=== PATIENT | female | born 1985 | race Two or more races ===

== ENCOUNTER 2017-04-09 19:54 | Emergency (ER) | payer OTHER ==
--- NOTE | 2017-04-09 20:16 | ED Physician Documentation ---
History of Present Illness - Stated complaint Stated Complaint: CHEST PX,HEAD PX,FACE NUMB - Chief complaint Chief Complaint: Cardiac - History obtained from History obtained from: Patient - History of Present Illness Timing: Other (3) Pain level max: 8 Pain level now: 8 - Additonal information Additional information: Patient is a 31-year-old female who presents to the emergency department complaining of feeling like food gets stuck when she swallows followed by diffuse chest pain. This lasts for a few minutes and then resolves. States this is worse with solid food and better with liquids. She also complains of a left-sided headache, left-sided face numbness. She has had a history of migraines, but has not had one for several years. Has seen her PCP for the food swallowing difficulties and had a barium swallow, does not know results. Review of Systems Constitutional: denies: Fever, Chills Eyes: reports: Photophobia (mild). denies: Loss of vision, Decreased vision Ears: denies: Ear pain Nose: denies: Rhinorrhea / runny nose, Congestion Throat: denies: Sore throat Cardiac: denies: Chest pain / pressure, Palpitations, Pedal edema Respiratory: denies: Dyspnea, Cough GI: denies: Abdominal Pain, Nausea, Vomiting, Diarrhea Skin: denies: Rash Musculoskeletal: denies: Neck pain, Back pain Neurologic: reports: Numbness (tingling to the L side of the face), Headache (L sided, gradual onset.). 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 - Present Medications Home Medications: Ambulatory Orders Medication Instructions Recorded Confirmed No Known Home Medications [No 04/09/17 04/09/17 Known Home Medications] - Allergies Allergies/Adverse Reactions: Allergies Allergy/AdvReac Type Severity Reaction Status Date / Time No Known Drug Allergies Allergy Verified 04/09/17 20:00 - Social History Does the pt smoke?: No Smoking Status: Never smoker PD ED PE NORMAL - Vitals Vital signs reviewed: Yes - General General: Alert and oriented X 3, No acute distress, Well developed/nourished - HEENT HEENT: Atraumatic, PERRL, EOMI, Ears normal, Moist mucous membranes - Neck Neck: Supple, no meningeal sign, No bony TTP, No JVD, No bruit - Cardiac Cardiac: RRR, Strong equal pulses - Respiratory Respiratory: No respiratory distress, Clear bilaterally - Abdomen Abdomen: Soft, Non tender, Non distended - Back Back: No spinal TTP - Derm Derm: Warm and dry, No rash - Extremities Extremities: Normal ROM s pain - Neuro Neuro: Alert and oriented X 3, curer foam rubber 2-12 intact, No motor deficit, No sensory deficit, Normal speech, Other (normal cerebellar tests) - Psych Psych: Normal mood, Normal affect Results - Vitals Vitals: Vital Signs - 24 hr 04/09/17 04/09/17 19:58 21:19 Temperature 36.4 C L Heart Rate 107 H 85 Respiratory 16 15 Rate Blood Pressure 133/78 H 133/66 H O2 Saturation 100 100 Oxygen O2 Source Room air - EKG (time done) 1958 Rate: Rate (enter#) (90) Rhythm: NSR [place]: Normal Intervals: Normal ME QRS: Normal Ischemia: Non specific changes Computer interpretation: Agree with computer - Labs Labs: Laboratory Tests 04/09/17 04/09/17 20:55 20:55 WBC 6.9 RBC 4.09 L Hgb 12.0 Hct 36.3 L MCV 88.8 MCH 29.4 MCHC 33.1 RDW 12.8 Plt Count 222 MPV 9.8 Neut # 3.5 Lymph # 2.8 [place] # 0.5 Eos # 0.1 Baso # 0.0 Absolute Nucleated RBC 0.00 Nucleated RBCs 0.0 Sodium 138 Potassium 3.5 Chloride 104 Carbon Dioxide 26 Anion Gap 8.0 BUN 17 Creatinine 0.7 Estimated GFR (MDRD) 98 Glucose 121 H Calcium 8.9 Total Bilirubin 0.4 AST 19 ALT 15 Alkaline Phosphatase 40 L Total Protein 7.3 Albumin 4.0 Globulin 3.3 Albumin/Globulin Ratio 1.2 Lipase 16 L PD MEDICAL DECISION MAKING - ED course Complexity details: reviewed results, re-evaluated patient, considered differential, d/w patient ED course: Patient is a 31-year-old female who presents to the emergency department with what sounds like a migraine headache, this resolved with Imitrex. Also sounds as if she has esophageal spasm versus achalasia, versus esophageal webs or rings. She will likely need further evaluation by GI. Will follow up with her doctor for this. No acute findings on laboratory testing. No electrolyte abnormalities. No EKG abnormalities. Chest pain is not consistent with cardiac etiology or pulmonary embolus. Headache resolved with Imitrex. Patient counseled regarding signs and symptoms for which I believe and urgent re -evaluation would be necessary. Patient with good understanding of and agreement to plan and is comfortable going home at this time This document was made in part using voice recognition software. While efforts are made to proofread this document, sound alike and grammatical errors may occur. Departure - Departure Disposition: Home, Self Care Clinical Impression: Esophageal spasm Migraine Qualifiers: Migraine type: unspecified Status migrainosus presence: without status migrainosus Intractability: not intractable Qualified Code(s): G43.909 - Migraine, unspecified, not intractable, without status migrainosus Condition: Good Instructions: ED Headache Migraine, ED Spasm Esophageal Follow-Up: DUSTY VALDEZ [Primary Care Provider] - Within 1 week Comments: The cause of your symptoms is unclear tonight, but may be related to esophageal strictures, esophageal achalasia, esophageal spasms or other esophageal disorders. It is recommended that you be referred to GI for further evaluation by your primary care provider. Return if you worsen. Your blood pressure was elevated today on check in to the emergency department. This does not mean that you have hypertension, it is a common phenomenon to check into the emergency department and have elevated blood pressure. I recommend that you see your primary care physician within the week to have it rechecked when you're feeling better.
[2017-04-09] MEDS ORDERED: SUMAtriptan 6 MG/0.5 ML VIAL SUBQ STA (20:37)
[2017-04-09] MEDS ORDERED: SUMAtriptan 6 MG/0.5 ML VIAL SUBQ ONE (20:39)
[2017-04-09 21:15] LABS: BASOPHILS % (AUTO) 0.4 %; EOSINOPHILS # (AUTO) 0.1 10^3/uL (0.0-0.7); HCT - HEMATOCRIT 36.3 % (37.0-47.0); LYMPHOCYTES # (AUTO) 2.8 10^3/uL (1.5-3.5); LYMPHOCYTES % (AUTO) 40.4 %; MEAN CORPUSCULAR HEMOGLOBIN 29.4 pg (27.0-31.0); MEAN CORPUSCULAR HGB CONC 33.1 g/dL (32.0-36.0); MEAN CORPUSCULAR VOLUME 88.8 fL (81.0-99.0); MEAN PLATELET VOLUME 9.8 fL (7.9-10.8); MONOCYTES # (AUTO) 0.5 10^3/uL (0.0-1.0); MONOCYTES % (AUTO) 7.5 %; NEUTROPHILS # (AUTO) 3.5 10^3/uL (1.5-6.6); NEUTROPHILS % (AUTO) 50.7 %; RED BLOOD COUNT 4.09 10^6/uL (4.20-5.40); RED CELL DISTRIBUTION WIDTH 12.8 % (12.0-15.0); UNCORRECTED WHITE BLOOD COUNT 6.9 x10^3/uL; WHITE BLOOD COUNT 6.9 x10^3/uL (4.8-10.8)
[2017-04-09 21:26] LABS: ALBUMIN/GLOBULIN RATIO 1.2 (1.0-2.2); BILIRUBIN,TOTAL 0.4 mg/dL (0.2-1.0); CALCIUM 8.9 mg/dL (8.5-10.3); CREATININE 0.7 mg/dL (0.4-1.0); POTASSIUM 3.5 mmol/L (3.5-5.0); TOTAL PROTEIN 7.3 g/dL (6.7-8.2)
[2017-04-09 21:41] VITALS: BP 124/71
== END 2017-04-09 21:39 | disposition home or self-care (01) ==
LOC: ED 19:54
DX: K22.4 Dyskinesia of esophagus (principal); G43.909 Migraine, unspecified, not intractable, without status migrainosus; R03.0 Elevated blood-pressure reading, without diagnosis of hypertension
CPT/HCPCS: 36415; 80053; 83690; 85025; 93005; 93010; 96372; 99283; 99284

== ENCOUNTER 2017-04-12 18:39 | Emergency (ER) | payer OTHER ==
[2017-04-12] MEDS ORDERED: MAG HYDROX/AL HYDROX/SIMETH 30 ML UDC PO STA (20:13)
[2017-04-12] MEDS ORDERED: LIDOCAINE VISCOUS 2% 15 ML UDC MM STA (20:13)
[2017-04-12] MEDS ORDERED: LIDOCAINE VISCOUS 2% 15 ML UDC MM ONE (20:16)
[2017-04-12] MEDS ORDERED: MAG HYDROX/AL HYDROX/SIMETH 30 ML UDC ONE (20:16)
== END 2017-04-12 20:44 | disposition home or self-care (01) ==
DX: T18.108A Unspecified foreign body in esophagus causing other injury, initial encounter (principal); X58.XXXA Exposure to other specified factors, initial encounter; R03.0 Elevated blood-pressure reading, without diagnosis of hypertension
CPT/HCPCS: 99283; A9270

== ENCOUNTER 2017-06-21 07:50 | Outpatient (CLI) | payer OTHER ==
--- NOTE | 2017-06-21 10:13 | MRI Report ---
EXAM: RIGHT MIDFOOT MRI WITHOUT CONTRAST EXAM DATE: 06/21/2017 08:36 AM. CLINICAL HISTORY: Inversion injury with fracture of the base of the fifth metatarsal 03/21/2017. 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 Chronic medial midfoot pain along first metatar josselyn. COMPARISON: None. TECHNIQUE: Multiplanar, multisequence T1-weighted and fluid-sensitive sequences of the midfoot withou t contrast. Other: None. FINDINGS: Bones: There is high T2 signal within the medial aspect of the navicula, inferior margin of the media l cuneiform and in the intermediate cuneiform. The findings are suggestive of contusions. There are c orticated bony fragments adjacent to the base of the fifth metatarsal, suggestive of a nonunited frac ture. Articular Cartilage: Unremarkable. Ligaments: Grossly unremarkable. Tendons: There is a partial thickness tear of the peroneus brevis adjacent to the lateral malleolus. The peroneus longus appears intact. The medial tendons appear normal. Musculature: No edema or fatty atrophy. Other: No effusions. The visualized portion of the tarsal tunnel is unremarkable. No intermetatarsal bursitis. The subcutaneous tissues are unremarkable. IMPRESSION: 1. Nonunited fracture of the base of the fifth metatarsal. 2. Contusions of the navicular, intermediate and medial cuneiform. 3. Partial-thickness tear of peroneus brevis. [facility] MUSCULOSKELETAL RADIOLOGY SECTION Referring Provider Line: [phone] SITE ID: [id number]
== END 2017-06-21 07:51 | disposition home or self-care (01) ==
LOC: DI 07:50
PROVIDERS: ATTEND Orthopaedic Surgery
DX: S92.351K Displaced fracture of fifth metatarsal bone, right foot, subsequent encounter for fracture with nonunion (principal); S86.311A Strain of muscle(s) and tendon(s) of peroneal muscle group at lower leg level, right leg, initial encounter